=== PATIENT | male | born 1965 | race Caucasian/White ===

== ENCOUNTER 2017-12-13 19:37 | Inpatient (IN) | payer MEDICARE, MEDICAID ==
[~2017-12-13] VITALS: Ht 180.3 cm; Wt 99.0 kg
[~2017-12-13 19:37] MED LIST: ALPR-475 PO; BENA20TA2 PO; CARV6.2512 PO; FURO-93 PO; POTA20TA14 PO; SIMV10TA3 PO; SPIR25TA3 PO
[2017-12-13] MEDS ORDERED: MORPHINE SULFATE 4 MG/ML, 1ML IVPush ONE (20:30)
[2017-12-13] MEDS ORDERED: ONDANSETRON 2MG/ML, 2ML IVPush ONE (20:30)
[2017-12-13 20:44] LABS: BASOPHILS # (AUTO) 0.02 x10^3/uL (0-0.1); BASOPHILS % (AUTO) 0 % (0-1); EOSINOPHILS # (AUTO) 0.17 x10^3/uL (0-0.4); EOSINOPHILS % (AUTO) 2 % (1-7); LYMPHOCYTES # (AUTO) 1.49 x10^3/uL (1-3.4); LYMPHOCYTES % (AUTO) 19 % (22-44); MD NO; MEAN CORPUSCULAR HEMOGLOBIN 30.1 pg (27.5-34.5); MEAN CORPUSCULAR HGB CONC 33.6 g/dL (33.2-36.2); MEAN CORPUSCULAR VOLUME 89.5 fL (81-97); MEAN PLATELET VOLUME 7.9 fL (7.4-10.4); MONOCYTES # (AUTO) 0.62 x10^3/uL (0.2-0.8); MONOCYTES % (AUTO) 8 % (2-9); NEUTROPHILS # (AUTO) 5.76 x10^3/uL (1.8-6.8); NEUTROPHILS % (AUTO) 72 % (42-75); PLATELET COUNT 242 x10^3/uL (130-400); RED CELL DISTRIBUTION WIDTH 13.8 % (9.4-14.8)
[2017-12-13 20:56] LABS: ALBUMIN 3.3 g/dL (3.4-5.0); ANION GAP 4 mmol/L (5-15); CALCIUM 8.6 mg/dL (8.5-10.1); CHLORIDE 107 mmol/L (98-107)
[2017-12-13] MEDS ORDERED: ONDANSETRON 2MG/ML, 2ML ONE (20:57)
[2017-12-13] MEDS ORDERED: MORPHINE SULFATE 4 MG/ML, 1ML ONE (20:57)
[2017-12-13 20:59] LABS: ALANINE AMINOTRANSFERASE 40 U/L (12-78); ALKALINE PHOSPHATASE 89 U/L (45-117); BILIRUBIN,TOTAL 0.9 mg/dL (0.2-1.0); CREATININE 0.83 mg/dL (0.7-1.3); TOTAL PROTEIN 6.8 g/dL (6.4-8.2)
[2017-12-13 22:06] LABS: INTERNATIONAL NORMALIZED RATIO 1.36 (0.93-1.1); PROTHROMBIN TIME 14.1 Seconds (9.6-11.5)
[2017-12-13 23:46] VITALS: BP 152/105
[2017-12-13] MEDS: CARVEDILOL 12.5 MG TABLET PO SCH (23:52)
[2017-12-13 23:55] VITALS: BP 152/105
[2017-12-14 02:05] VITALS: BP 110/66
[2017-12-14 04:14] LABS: MICROSCOPIC NOT IND
[2017-12-14 04:17] LABS: CULTURE INDICATED? NO
[2017-12-14 06:30] VITALS: BP 123/67
[2017-12-14] MEDS ORDERED: BENAZEPRIL 10 MG TABLET ONE (07:54)
[2017-12-14] MEDS: CARVEDILOL 12.5 MG TABLET PO SCH ×2 (07:57→21:05)
[2017-12-14] MEDS: FUROSEMIDE 40 MG TABLET PO SCH (07:58)
[2017-12-14] MEDS: BENAZEPRIL 5 MG TABLET PO SCH (07:58)
[2017-12-14 12:00] VITALS: BP 107/71
[2017-12-14] MEDS ORDERED: HYDROXYZINE PAMOATE 50MG CAP PO PRN (15:00)
[2017-12-14] MEDS ORDERED: MIDAZOLAM 1 MG/ML, 2ML ONE ×2 (16:40→19:58)
[2017-12-14] MEDS ORDERED: FENTANYL PF 250 MCG/5ML ONE (16:40)
[2017-12-14] MEDS ORDERED: PROPOFOL 10 MG/ML, 20ML ONE (16:41)
[2017-12-14] MEDS ORDERED: SODIUM CHLORIDE 0.9% PF 10ML ONE (16:42)
[2017-12-14] MEDS ORDERED: ROCURONIUM 10 MG/ML,10ML ONE (16:42)
[2017-12-14] MEDS ORDERED: CEFAZOLIN 1,000 MG ONE ×2 (16:42)
[2017-12-14] MEDS ORDERED: NEOSTIGMINE 1 MG/ML, 10ML ONE (16:43)
[2017-12-14] MEDS ORDERED: GLYCOPYRROLATE 0.4 MG/2 ML, 2ML ONE (16:43)
[2017-12-14] MEDS ORDERED: BUPIVACAINE/PF 0.5% ONE (17:30)
[2017-12-14] MEDS ORDERED: EPINEPHRINE 1 MG/ML, 1ML ONE (17:30)
[2017-12-14] MEDS ORDERED: DEXAMETHASONE 4 MG/ML, 1ML ONE (17:43)
[2017-12-14] MEDS ORDERED: SUCCINYLCHOLINE 20 MG/ML, 10ML ONE (17:43)
[2017-12-14] MEDS ORDERED: ONDANSETRON 2MG/ML, 2ML ONE (17:43)
[2017-12-14] MEDS ORDERED: DIAZEPAM 5 MG/ML, 2ML IVPush PRN (18:30)
[2017-12-14] MEDS ORDERED: PROMETHAZINE 12.5 MG SUPP PR PRN (18:30)
[2017-12-14] MEDS ORDERED: HYDROcodone/APAP 7.5-325MG/15ML UDC PO PRN (18:30)
[2017-12-14] MEDS ORDERED: EPHEDRINE 50 MG/ML, 1ML IVPush PRN (18:30)
[2017-12-14] MEDS ORDERED: METOPROLOL 1 MG/ML, 5ML IV PRN (18:30)
[2017-12-14] MEDS ORDERED: ALBUTEROL SULFATE 2.5 MG/3 ML NPPB PRN (18:30)
[2017-12-14] MEDS ORDERED: PROMETHAZINE 25 MG/ML, 1ML IV PRN (18:30)
[2017-12-14] MEDS ORDERED: ACETAMINOPHEN 325 MG TABLET PO PRN (18:30)
[2017-12-14] MEDS ORDERED: OXYcodone 5 MG/5 ML ORAL.SOL UDC PO PRN (18:30)
[2017-12-14] MEDS ORDERED: hydrALAzine 20 MG/ML, 1ML IV PRN (18:30)
[2017-12-14] MEDS ORDERED: MEPERIDINE/PF 25MG/0.5ML IVPush PRN (18:30)
[2017-12-14] MEDS ORDERED: ONDANSETRON 2MG/ML, 2ML IVPush PRN (18:30)
[2017-12-14] MEDS ORDERED: LABETALOL 5MG/ML, 20ML IV PRN (18:30)
[2017-12-14] MEDS ORDERED: FENTANYL PF 100 MCG/2ML ONE (19:42)
[2017-12-14] MEDS ORDERED: ACETAMINOPHEN 650 MG/20.3 ML UDC ONE (19:42)
[2017-12-14] MEDS ORDERED: OXYcodone 5 MG/5 ML ORAL.SOL UDC ONE (19:42)
[2017-12-14] MEDS ORDERED: MEPERIDINE/PF 50 MG/ML ONE (19:42)
[2017-12-14] MEDS: FENTANYL PF 100 MCG/2ML IV PRN ×2 (19:44→19:57)
[2017-12-14] MEDS ORDERED: morphine SULFATE 10 MG/ML, 1ML ONE (19:58)
[2017-12-14] MEDS: MIDAZOLAM 1 MG/ML, 2ML IV PRN ×2 (19:59→20:06)
[2017-12-14] MEDS: morphine SULFATE 10 MG/ML, 1ML IV PRN ×3 (20:03→20:29)
[2017-12-14 21:00] VITALS: BP 123/74
[2017-12-14] MEDS ORDERED: IBUPROFEN 800 MG TABLET PO PRN (21:30)
[2017-12-14] MEDS: ACETAMINOPHEN 500 MG TABLET PO SCH (21:30)
[2017-12-14] MEDS: OXYcodone IR 5MG TABLET PO PRN (22:15)
[2017-12-15] MEDS: ACETAMINOPHEN 500 MG TABLET PO SCH ×2 (00:12→05:55)
[2017-12-15 01:23] VITALS: BP 134/70
[2017-12-15] MEDS: OXYcodone IR 5MG TABLET PO PRN ×2 (04:21→10:19)
[2017-12-15] MEDS: CARVEDILOL 12.5 MG TABLET PO SCH (05:55)
[2017-12-15] MEDS: BENAZEPRIL 5 MG TABLET PO SCH (08:22)
[2017-12-15] MEDS: FUROSEMIDE 40 MG TABLET PO SCH (08:22)
[2017-12-15] MEDS ORDERED: FURO-93 PO (09:30)
[2017-12-15] MEDS ORDERED: BENA20TA2 PO (09:30)
[2017-12-15] MEDS ORDERED: CARV6.2512 PO (09:30)
[2017-12-15] MEDS ORDERED: POTA10TA11 PO (09:30)
[2017-12-15] MEDS ORDERED: SIMV10TA3 PO (09:30)
== END 2017-12-15 12:09 | disposition home or self-care (01) | DRG 351 ==
LOC: ED 23:07 → 4EST 23:25 → DCLOUNGE 12-15 11:24
PROVIDERS: ADMIT Hospitalist; ATTEND Hospitalist
PROC: 0YU50JZ Supplement Right Inguinal Region with Synthetic Substitute, Open Approach (ICD-10-PCS; principal; 2017-12-14 17:45)
DX: K40.90 Unilateral inguinal hernia, without obstruction or gangrene, not specified as recurrent (principal); I50.32 Chronic diastolic (congestive) heart failure; D68.69 Other thrombophilia; I11.0 Hypertensive heart disease with heart failure; F41.1 Generalized anxiety disorder; I48.2 Chronic atrial fibrillation; N43.3 Hydrocele, unspecified; Z79.01 Long term (current) use of anticoagulants
CPT/HCPCS: 36415; 76870; 80053; 81003; 85025; 85610; 93005; 96374; 96375; J0171; J0690; J1100; J2175; J2250; J2405; J2704; J2710; J3010; J3490; C1781; J0330; J2270; Q0177

== ENCOUNTER 2018-03-09 07:24 | Inpatient (IN) | payer MEDICARE, MEDICAID ==
[~2018-03-09] VITALS: Ht 180.3 cm; Wt 94.9 kg
[~2018-03-09 07:24] MED LIST changes: +POTA10TA11 PO
[2018-03-09] MEDS ORDERED: LORazepam 1MG TABLET ONE (07:53)
[2018-03-09] MEDS ORDERED: LORazepam 1MG TABLET PO ONE (08:00)
[2018-03-09 08:06] LABS: BASOPHILS # (AUTO) 0.11 x10^3/uL (0-0.1); BASOPHILS % (AUTO) 1 % (0-1); EOSINOPHILS # (AUTO) 0.23 x10^3/uL (0-0.4); EOSINOPHILS % (AUTO) 3 % (1-7); LYMPHOCYTES # (AUTO) 2.65 x10^3/uL (1-3.4); LYMPHOCYTES % (AUTO) 28 % (22-44); MD NO; MEAN CORPUSCULAR HGB CONC 32.9 g/dL (33.2-36.2); MEAN PLATELET VOLUME 8.5 fL (7.4-10.4); MONOCYTES # (AUTO) 0.59 x10^3/uL (0.2-0.8); MONOCYTES % (AUTO) 6 % (2-9); NEUTROPHILS # (AUTO) 5.75 x10^3/uL (1.8-6.8); NEUTROPHILS % (AUTO) 62 % (42-75); PLATELET COUNT 299 x10^3/uL (130-400); RED BLOOD COUNT 5.96 x10^6/uL (4.38-5.82); RED CELL DISTRIBUTION WIDTH 16.3 % (9.4-14.8)
[2018-03-09 08:15] LABS: ALBUMIN 3.4 g/dL (3.4-5.0); ANION GAP 6 mmol/L (5-15); CALCIUM 8.6 mg/dL (8.5-10.1); CHLORIDE 108 mmol/L (98-107); CREATININE 1.09 mg/dL (0.7-1.3)
[2018-03-09 08:23] LABS: TROPONIN I 0.144 ng/mL (0.000-0.045)
[2018-03-09] MEDS ORDERED: ASPIRIN 81 MG TABLET CHEW ONE (09:10)
[2018-03-09] MEDS ORDERED: ASPIRIN 325 MG TABLET ONE (09:12)
[2018-03-09] MEDS ORDERED: ASPIRIN 325 MG TABLET PO ONE (09:30)
[2018-03-09 10:13] VITALS: BP 117/76
[2018-03-09] MEDS ORDERED: ONDANSETRON 2MG/ML, 2ML IVPush PRN (11:00)
[2018-03-09] MEDS ORDERED: FUROSEMIDE 20 MG/2 ML IV SCH (11:00)
[2018-03-09] MEDS ORDERED: CARVEDILOL 6.25 MG TABLET PO SCH (11:00)
[2018-03-09] MEDS ORDERED: NITROGLYCERIN 0.4 MG BOTTLE (25 TABS) SL PRN (11:00)
[2018-03-09] MEDS ORDERED: hydrALAzine 20 MG/ML, 1ML IVPush PRN (11:00)
[2018-03-09] MEDS ORDERED: ENOXAPARIN 40 MG/0.4 ML SQ SCH (11:00)
[2018-03-09 12:47] LABS: HEMOGLOBIN A1C 5.6 % (4.2-6.3)
[2018-03-09 13:31] VITALS: BP 99/67
[2018-03-09] MEDS ORDERED: ATORVASTATIN 80 MG TABLET PO SCH (21:00)
[2018-03-10] MEDS ORDERED: ASPIRIN 81 MG TABLET CHEW PO SCH (09:00)
== END 2018-03-09 15:50 | disposition left against medical advice (07) | DRG 302 ==
LOC: ED 08:59 → EDIP 09:00 → ED 09:17 → 5SO 10:15
PROVIDERS: ADMIT Internal Medicine Pulmonary Disease; ATTEND Internal Medicine Pulmonary Disease
DX: I25.10 Atherosclerotic heart disease of native coronary artery without angina pectoris (principal); I50.33 Acute on chronic diastolic (congestive) heart failure; R06.02 Shortness of breath; I11.0 Hypertensive heart disease with heart failure; I48.0 Paroxysmal atrial fibrillation; Z53.21 Procedure and treatment not carried out due to patient leaving prior to being seen by health care provider; F41.9 Anxiety disorder, unspecified; F12.10 Cannabis abuse, uncomplicated; R73.9 Hyperglycemia, unspecified; R74.8 Abnormal levels of other serum enzymes; Y93.89 Activity, other specified; Z79.01 Long term (current) use of anticoagulants; Z79.82 Long term (current) use of aspirin; Z87.891 Personal history of nicotine dependence; Y92.89 Other specified places as the place of occurrence of the external cause; Y99.8 Other external cause status; Y08.89XA Assault by other specified means, initial encounter; Z90.49 Acquired absence of other specified parts of digestive tract; Z71.51 Drug abuse counseling and surveillance of drug abuser
CPT/HCPCS: 36415; 71045; 80048; 82040; 83036; 83735; 83880; 84484; 85025; 93005; 93306; 99285; J1650; J1940

== ENCOUNTER 2018-03-26 05:41 | Emergency (ER) | payer MEDICARE, MEDICAID ==
[~2018-03-26] VITALS: Ht 177.8 cm; Wt 90.7 kg
[2018-03-26 07:30] VITALS: BP 138/84
== END 2018-03-26 07:32 | disposition home or self-care (01) ==
LOC: ED 07:30
DX: S02.40FA Zygomatic fracture, left side, initial encounter for closed fracture (principal); S01.412A Laceration without foreign body of left cheek and temporomandibular area, initial encounter; I10 Essential (primary) hypertension; Z87.891 Personal history of nicotine dependence; Y04.0XXA Assault by unarmed brawl or fight, initial encounter; Y93.89 Activity, other specified; Y99.8 Other external cause status; Y92.009 Unspecified place in unspecified non-institutional (private) residence as the place of occurrence of the external cause
CPT/HCPCS: 99283

== ENCOUNTER 2018-03-29 20:47 | Emergency (ER) | payer MEDICARE, MEDICAID ==
[~2018-03-29] VITALS: Ht 180.3 cm; Wt 94.0 kg
[2018-03-29 23:36] VITALS: BP 120/68
== END 2018-03-30 01:01 | disposition home or self-care (01) ==
LOC: ED 23:59
DX: S02.32XA Fracture of orbital floor, left side, initial encounter for closed fracture (principal); S02.2XXA Fracture of nasal bones, initial encounter for closed fracture; S02.40FA Zygomatic fracture, left side, initial encounter for closed fracture; S02.40DA Maxillary fracture, left side, initial encounter for closed fracture; Z72.9 Problem related to lifestyle, unspecified; Y08.89XA Assault by other specified means, initial encounter; Y93.89 Activity, other specified; Y92.89 Other specified places as the place of occurrence of the external cause; Y99.8 Other external cause status
CPT/HCPCS: 70450; 70486; 99284